=== PATIENT | male | born 1960 | race Caucasian/White ===

== ENCOUNTER → 2017-06-03 | Outpatient (CLI) | payer OTHER ==
--- NOTE | 2017-06-03 10:59 | REP ---
Clinical: Pain with recent trauma . Technique: AP, lateral, bilateral oblique, and coned-down views. Findings: Alignment and lordosis is maintained. The vertebral bodies including transverse process and spinous processes are intact and there is no evidence for acute fracture / compression injury or subluxation. No evidence for spondylolysis or spondylolisthesis. Mild endplate sclerosis and spurring at the L4-5 and L5-S1 levels suggest mild degenerative change. Impression: Mild degenerative changes at the L4-5 and L5-S1 levels. No acute fracture / compression injury or subluxation. Signed by Emerson Camarena MD 06/03/2017 10:50 A
== END ==
LOC: M RAD 09:25
PROVIDERS: ATTEND Surgery
DX: M51.36 Other intervertebral disc degeneration, lumbar region (principal); M51.37 Other intervertebral disc degeneration, lumbosacral region